=== PATIENT | male | born 1955 | race Caucasian/White ===

== ENCOUNTER 2016-10-26 14:16 | Emergency (ER) | payer MEDICAID ==
[~2016-10-26] VITALS: Ht 182.9 cm; Wt 127.0 kg
[~2016-10-26 14:16] MED LIST: ATOR20TA OR; VALS40TA2 OR
[2016-10-26 14:53] LABS: Basophils # (auto) 0 uL; Basophils % (auto) 0.4 % (0.0-2.0); CONDITION Y; Eosinophils # (auto) 0 uL; Eosinophils % (auto) 0.4 % (0.0-7.0); Hematocrit 43.5 % (41.0-53.0); Hemoglobin 14.9 g/dL (13.5-17.5); Lymphocytes # (auto) 1.5 uL; Lymphocytes % (auto) 15.9 % (10.0-50.0); Mean Corpuscular Hemoglobin 30.5 pg (28.0-32.0); Mean Corpuscular Hgb Conc. 34.3 g/dL (32.0-36.0); Mean Corpuscular Volume 88.7 fL (80.0-100.0); Mean Platelet Volume 8.7 fL (7.4-10.4); Monocytes # (auto) 0.5 uL; Monocytes % (auto) 4.9 % (0.0-12.0); Neutrophils # (auto) 7.5 uL; Neutrophils % (auto) 78.4 % (37.0-80.0); Platelet Count (auto) 228 10^3/uL (140-450); Red Cell Distribution Width 14.5 % (11.6-16.0); White Blood Cell 9.6 10^3/uL (4.4-10.8)
[2016-10-26 15:22] LABS: Anion Gap 14 (5-15); BUN/Creatinine Ratio 18.8; Blood Urea Nitrogen 21 mg/dL (7-18); Calcium 9.6 mg/dL (8.5-10.1); Carbon Dioxide 22 mmol/L (21-32); Chloride 110 mmol/L (98-107); GFR African American 85 mL/min; GFR Non-African American 71 mL/min; Glucose 136 mg/dL (74-106); Magnesium 2.6 mg/dL (1.6-2.6); Potassium 4.5 mmol/L (3.5-5.1); Sodium 146 mmol/L (136-145)
[2016-10-26 23:28] LABS: Urine Bilirubin Negative (Negative); Urine Blood Negative /uL (Negative); Urine Color Yellow (Yellow); Urine Glucose Normal (Normal); Urine Hyaline Cast FEW /lpf (0 - 2); Urine Ketone Negative (Negative); Urine Mucus FEW (None Seen); Urine Nitrite Negative (Negative); Urine RBC 1 /hpf (0 - 3); Urine Urobilinogen Normal (Negative)
[2016-10-27] MEDS ORDERED: HYDROcodone-ACET 5/325MG TAB PO ONE (02:45)
[2016-10-27 03:30] VITALS: BP 146/92
== END 2016-10-27 04:31 | disposition home or self-care (01) ==
LOC: ER 14:16
DX: N13.2 Hydronephrosis with renal and ureteral calculous obstruction (principal); N23 Unspecified renal colic; I10 Essential (primary) hypertension
CPT/HCPCS: 36415; 74176; 80048; 81001; 83735; 84484; 85025; 93005

== ENCOUNTER 2017-02-02 21:01 | Emergency (ER) | payer MEDICAID ==
[~2017-02-02] VITALS: Ht 182.9 cm; Wt 122.5 kg
[2017-02-02 22:16] LABS: Basophils # (auto) 0.1 uL; Basophils % (auto) 0.8 % (0.0-2.0); Eosinophils # (auto) 0.4 uL; Hematocrit 43.4 % (41.0-53.0); Hemoglobin 15.2 g/dL (13.5-17.5); Lymphocytes # (auto) 2.9 uL; Mean Corpuscular Hemoglobin 31.6 pg (28.0-32.0); Mean Corpuscular Volume 90.4 fL (80.0-100.0); Mean Platelet Volume 8.1 fL (6.9-10.8); Monocytes # (auto) 0.9 uL; Monocytes % (auto) 9.7 % (0.0-12.0); Neutrophils # (auto) 5.2 uL; Neutrophils % (auto) 54.5 % (37.0-80.0); Nucleated Red Blood Cells % 0.3 %; Platelet Count (auto) 202 10^3/uL (140-450); Red Cell Distribution Width 14.2 % (11.8-14.3); White Blood Cell 9.4 10^3/uL (4.4-10.8)
[2017-02-02 22:30] LABS: BUN/Creatinine Ratio 17.6; Bilirubin, Total 0.5 mg/dL (0.2-1.0); Calcium 8.9 mg/dL (8.5-10.1); Potassium 3.9 mmol/L (3.5-5.1); Total Protein 7.6 g/dL (6.4-8.2)
[2017-02-03 08:30] VITALS: BP 133/95
[2017-02-03 10:02] LABS: Urine Bilirubin Negative (Negative); Urine Blood 1+ /uL (Negative); Urine Color Yellow (Yellow); Urine Glucose Normal (Normal); Urine Ketone Negative (Negative); Urine Nitrite Negative (Negative); Urine RBC 6 /hpf (0 - 3); Urine Urobilinogen Normal (Negative)
== END 2017-02-03 09:59 | disposition home or self-care (01) ==
LOC: ER 21:07
DX: H35.031 Hypertensive retinopathy, right eye (principal); E07.9 Disorder of thyroid, unspecified; Z90.49 Acquired absence of other specified parts of digestive tract; R42 Dizziness and giddiness; Z79.899 Other long term (current) drug therapy
CPT/HCPCS: 36415; 70450; 80053; 81001; 85025

== ENCOUNTER 2017-10-19 11:15 | Inpatient (IN) | payer MEDICAID ==
[~2017-10-19] VITALS: Ht 365.8 cm; Wt 124.5 kg
[~2017-10-19 11:15] MED LIST changes: -ATOR20TA OR; +ATOR20TA PO; -VALS40TA2 OR; +VALS40TA2 PO
[2017-10-19] MEDS ORDERED: SODIUM CHLORIDE 0.9% 1,000 ML IV ONE ×2 (11:24)
[2017-10-19 11:44] LABS: Basophils # (auto) 0.1 uL; Basophils % (auto) 0.7 % (0.0-2.0); Eosinophils # (auto) 0.2 uL; Eosinophils % (auto) 2.7 % (0.0-7.0); Hematocrit 42.8 % (41.0-53.0); Hemoglobin 14.4 g/dL (13.5-17.5); Lymphocytes % (auto) 25.2 % (10.0-50.0); Mean Corpuscular Hemoglobin 30.1 pg (28.0-32.0); Mean Corpuscular Hgb Conc. 33.7 g/dL (32.0-36.0); Mean Corpuscular Volume 89.4 fL (80.0-100.0); Monocytes # (auto) 0.6 uL; Monocytes % (auto) 7.3 % (0.0-12.0); Neutrophils # (auto) 5.1 uL; Neutrophils % (auto) 64.1 % (37.0-80.0); Nucleated Red Blood Cells % 0.1 %; Platelet Count (auto) 227 10^3/uL (140-450); Red Blood Cells 4.78 10^6/uL (4.5-5.90); Red Cell Distribution Width 13.7 % (11.8-14.3); White Blood Cell 7.9 10^3/uL (4.4-10.8)
[2017-10-19] MEDS ORDERED: KETOROLAC TROMETH 30 MG/ML 1ML VIAL IV ONE (11:45)
[2017-10-19 12:14] LABS: Alanine Aminotransferase 40 U/L (16-61); Albumin 4.1 g/dL (3.4-5.0); Alkaline Phosphatase 49 U/L (45-117); Anion Gap 15 (5-15); Aspartate Aminotransferase 20 U/L (15-37); BUN/Creatinine Ratio 17.2; Bilirubin, Total 0.4 mg/dL (0.2-1.0); Blood Urea Nitrogen 21 mg/dL (7-18); Calcium 9.4 mg/dL (8.5-10.1); Carbon Dioxide 20 mmol/L (21-32); Chloride 107 mmol/L (98-107); GFR African American 77 mL/min; GFR Non-African American 64 mL/min; Glucose 123 mg/dL (74-106); Potassium 4.4 mmol/L (3.5-5.1); Sodium 142 mmol/L (136-145); Total Protein 7.6 g/dL (6.4-8.2)
[2017-10-19] MEDS ORDERED: cefTRIAXone 1GM/10ml IVPUSH 10 ML IV ONE (14:30)
[2017-10-19] MEDS ORDERED: NITROGLYCERIN 0.4 MG SL TAB SL PRN (14:30)
[2017-10-19] MEDS ORDERED: TEMAZEPAM 15 MG CAP PO PRN (14:30)
[2017-10-19] MEDS ORDERED: PROMETHAZINE HCL 25 MG/ML 1ML IV PRN (14:30)
[2017-10-19] MEDS ORDERED: MORPHINE SULF(PF) 0.5MG/ML 10ML VIAL IV PRN (14:30)
[2017-10-19] MEDS ORDERED: LORazepam 0.5 MG TAB PO PRN (14:30)
[2017-10-19] MEDS ORDERED: IBUPROFEN 400 MG TAB PO PRN (14:30)
[2017-10-19] MEDS ORDERED: ACETAMINOPHEN 500 MG TAB PO PRN (14:30)
[2017-10-19] MEDS: SODIUM CHLORIDE 0.9% 1,000 ML IV SCH (15:44)
[2017-10-19] MEDS ORDERED: MANNITOL 20 % (20GM/100ML) 62.5 ML IV ONE ×3 (17:00→17:30)
[2017-10-19] MEDS ORDERED: TAMSULOSIN HYDROCHLORIDE 0.4 MG CAP PO ONE ×2 (17:00→18:00)
[2017-10-19 21:00] VITALS: BP 141/86
[2017-10-19 22:00] VITALS: BP 141/86
[2017-10-19] MEDS ORDERED: FAMOTIDINE 20 MG TAB ONE (22:51)
[2017-10-19] MEDS: FAMOTIDINE 20 MG TAB PO SCH (22:58)
[2017-10-19] MEDS ORDERED: KETOROLAC TROMETH 30 MG/ML 1ML VIAL ONE (23:44)
[2017-10-19] MEDS: KETOROLAC TROMETH 30 MG/ML 1ML VIAL IV PRN (23:48)
[2017-10-20] MEDS: KETOROLAC TROMETH 30 MG/ML 1ML VIAL IV PRN ×3 (00:42→13:50)
[2017-10-20] MEDS: SODIUM CHLORIDE 0.9% 1,000 ML IV SCH ×3 (00:42→20:25)
[2017-10-20] MEDS ORDERED: ATEN50TA PO (00:50)
[2017-10-20] MEDS ORDERED: LEVO100T8 PO (00:50)
[2017-10-20] MEDS ORDERED: OMEG100062 PO (00:50)
[2017-10-20] MEDS ORDERED: LOSA25TA9 PO (00:50)
[2017-10-20] MEDS ORDERED: AMLO5TAB2 PO (00:50)
[2017-10-20] MEDS ORDERED: ATO40T PO (00:50)
[2017-10-20] MEDS ORDERED: LIOT5TAB PO (00:50)
[2017-10-20 05:00] VITALS: BP 131/78
[2017-10-20] MEDS ORDERED: KETOROLAC TROMETH 30 MG/ML 1ML VIAL ONE (06:59)
[2017-10-20 08:30] VITALS: BP 141/79
[2017-10-20] MEDS: cefTRIAXone 1GM/10ml IVPUSH 10 ML IV SCH (09:00)
[2017-10-20] MEDS: FAMOTIDINE 20 MG TAB PO SCH ×2 (11:15→22:39)
[2017-10-20] MEDS ORDERED: ATENOLOL 50 MG TAB PO ONE (11:45)
[2017-10-20] MEDS ORDERED: LEVOTHYROXINE SODIUM 100 MCG TAB PO ONE (11:45)
[2017-10-20 12:22] VITALS: BP 123/81
[2017-10-20 17:19] VITALS: BP 134/75
[2017-10-20] MEDS ORDERED: TAMSULOSIN HYDROCHLORIDE 0.4 MG CAP PO SCH (18:00)
[2017-10-20 22:00] VITALS: BP 117/80
[2017-10-21 05:09] VITALS: BP 129/87
[2017-10-21] MEDS: SODIUM CHLORIDE 0.9% 1,000 ML IV SCH (06:25)
[2017-10-21] MEDS ORDERED: LEVOTHYROXINE SODIUM 100 MCG TAB PO SCH (07:00)
[2017-10-21] MEDS ORDERED: PATIENTS OWN MEDICATION PO SCH (08:00)
[2017-10-21 08:14] LABS: Basophils # (auto) 0.1 uL; Basophils % (auto) 0.7 % (0.0-2.0); Eosinophils # (auto) 0.2 uL; Eosinophils % (auto) 3.2 % (0.0-7.0); Hemoglobin 14.7 g/dL (13.5-17.5); Lymphocytes # (auto) 2.3 uL; Lymphocytes % (auto) 32.1 % (10.0-50.0); Mean Corpuscular Hemoglobin 30.7 pg (28.0-32.0); Mean Corpuscular Hgb Conc. 34.1 g/dL (32.0-36.0); Monocytes # (auto) 0.5 uL; Monocytes % (auto) 6.2 % (0.0-12.0); Neutrophils # (auto) 4.2 uL; Neutrophils % (auto) 57.8 % (37.0-80.0); Nucleated Red Blood Cells % 0.1 %; Platelet Count (auto) 206 10^3/uL (140-450); Red Blood Cells 4.77 10^6/uL (4.5-5.90); White Blood Cell 7.3 10^3/uL (4.4-10.8)
[2017-10-21 08:26] LABS: BUN/Creatinine Ratio 14.1; Calcium 8.4 mg/dL (8.5-10.1); Potassium 4.2 mmol/L (3.5-5.1)
[2017-10-21 09:00] VITALS: BP 155/97
[2017-10-21] MEDS: cefTRIAXone 1GM/10ml IVPUSH 10 ML IV SCH (09:00)
[2017-10-21] MEDS: FAMOTIDINE 20 MG TAB PO SCH (09:57)
[2017-10-21] MEDS ORDERED: ATENOLOL 50 MG TAB PO SCH (10:00)
[2017-10-21 10:30] VITALS: BP 155/97
== END 2017-10-21 10:55 | disposition home or self-care (01) | DRG 465 ==
LOC: EDBD 11:15 → ER 11:15 → TELE-WESTW 11:16 → ER 20:02
PROVIDERS: ADMIT Internal Medicine; ATTEND Internal Medicine
DX: N13.2 Hydronephrosis with renal and ureteral calculous obstruction (principal); I10 Essential (primary) hypertension; E03.9 Hypothyroidism, unspecified; K57.30 Diverticulosis of large intestine without perforation or abscess without bleeding; Z82.49 Family history of ischemic heart disease and other diseases of the circulatory system; Z87.442 Personal history of urinary calculi; Z90.49 Acquired absence of other specified parts of digestive tract
CPT/HCPCS: 36415; 71045; 74176; 80048; 80053; 83970; 84484; 84550; 85025; 93005; 96361; 96365; 96375; J1885